=== PATIENT | female | born 1970 | race American Indian/Alaskan Native ===

== ENCOUNTER 2017-04-12 14:58 | Outpatient (CLI) | payer OTHER ==
--- NOTE | 2017-04-12 15:39 | Mammography Report ---
BILATERAL DIGITAL SCREENING MAMMOGRAM with CAD: 04/12/17 14:58:00 CLINICAL: Routine screening. COMPARISON: 02/12/11 FINDINGS: The breasts are heterogeneously dense, which may obscure small masses.No mass, architectural distortion or suspicious calcifications. IMPRESSION: No mammographic evidence of malignancy. BI-RADS CATEGORY: 1 -- Negative RECOMMENDATION: Routine mammographic screening in one year. COMMENT: Patient follow-up letters are generated by our [employer] application.
== END 2017-04-12 14:59 | disposition home or self-care (01) ==
LOC: SPVWC 14:58
PROVIDERS: ATTEND Surgery
DX: Z12.31 Encounter for screening mammogram for malignant neoplasm of breast (principal)
CPT/HCPCS: 77067

== ENCOUNTER 2020-09-29 11:25 | Outpatient (CLI) | payer BC, OTHER | END 2020-09-29 11:26 | disposition home or self-care (01) | LOC: SPVWC 11:25 | DX: Z12.31 Encounter for screening mammogram for malignant neoplasm of breast (principal) | CPT/HCPCS: 77063; 77067 ==